=== PATIENT | female | born 1970 | race American Indian/Alaskan Native ===

== ENCOUNTER 2017-05-30 17:54 | Emergency (ER) | payer SELFPAY ==
[2017-05-30 18:29] LABS: Basophils % (Auto) 0.6 % (0.0-1.8); Eosinophils % (Auto) 2.4 % (0.0-4.3); Hematocrit 34.5 % (30.3-42.9); Hemoglobin 10.8 gm/dl (10.1-14.3); Mean Corpuscular HGB Conc 31 % (30-34); Mean Corpuscular Hemoglobin 23 pg (28-32); Mean Corpuscular Volume 75 fl (79-97); Platelet Count 339 K/mm3 (140-440); Red Blood Count 4.63 M/mm3 (3.65-5.03); Red Cell Distribution Width 16.5 % (13.2-15.2); White Blood Count 10.7 K/mm3 (4.5-11.0)
[2017-05-30 18:58] LABS: Anion Gap 17 mmol/L; BUN/Creatinine Ratio 15; Blood Urea Nitrogen 12 mg/dL (7-17); Calcium 9.5 mg/dL (8.4-10.2); Carbon Dioxide 26 mmol/L (22-30); Chloride 99.4 mmol/L (98-107); Glucose 86 mg/dL (65-100); Sodium 138 mmol/L (137-145)
--- NOTE | 2017-05-30 20:39 | XRay Report ---
FINAL REPORT PROCEDURE: XR CHEST ROUTINE 2V TECHNIQUE: Two views of the chest are obtained HISTORY: sob, cp. cough COMPARISON: No prior studies are available for comparison. FINDINGS: The heart is normal in size. There is no focal infiltrate, pneumothorax or pleural effusion. IMPRESSION: No abnormalities are seen.
[2017-05-30] MEDS ORDERED: TYLENOL PO ONE (21:27)
[2017-05-31] MEDS ORDERED: TORADOL IM ONE (02:30)
--- NOTE | 2017-05-31 02:32 | Emergency Department Report ---
ED Chest Pain HPI - General Chief Complaint: Chest Pain Stated Complaint: CHEST PAIN, BODY ACHES Time Seen by Provider: 05/31/17 02:22 Source: patient Mode of arrival: Ambulatory Limitations: No Limitations - History of Present Illness Initial Comments: 47 yo female with3 days of nasal congestion, post-nasal drip ,cough, and chest pain. she feels short of breath and nauseated at times, no vomiting has occurred. She is spitting up yellow sputum with specks of blood in it , c/o fever a few days ago but not now. MD Complaint: chest pain -: Gradual, days(s) (3) Onset: during rest Pain Location: substernal Pain Radiation: none Severity scale (0 -10): 6 Quality: tightness Consistency: intermittent Worsens With: other (coughing) Other Symptoms: cough, fever Aspirin use within the Past 7 Days: (0) No - Related Data On Oral Contraceptives: No Previous Rx's Medication Instructions Recorded Last Taken Type ALBUTEROL Inhaler [Proair] 2 puff IH QID PRN #1 inhalation 05/31/17 Unknown Rx Azithromycin [Zithromax Tri-Talib] 250 mg PO QDAY #6 tablet 05/31/17 Unknown Rx Fluconazole [Diflucan] 200 mg PO QDAY #2 tablet 05/31/17 Unknown Rx Fluticasone [Flonase] 1 spray NS QDAY #1 bottle 05/31/17 Unknown Rx Allergies Allergy/AdvReac Type Severity Reaction Status Date / Time codeine Allergy Vomiting Verified 05/30/17 18:08 Heart Score - HEART Score History: Slightly suspicious EKG: Non-specific Age: 45-65 Risk factors: 1-2 risk factors Troponin: < normal limit (x 3) HEART Score: 3 ED Review of Systems ROS: Stated complaint: CHEST PAIN, BODY ACHES Other details as noted in HPI Constitutional: denies: chills, fever Eyes: denies: eye pain, eye discharge, vision change ENT: congestion. denies: ear pain, throat pain Respiratory: cough. denies: shortness of breath, wheezing Cardiovascular: chest pain. denies: palpitations Endocrine: no symptoms reported Gastrointestinal: denies: abdominal pain, nausea, diarrhea Genitourinary: denies: urgency, dysuria, discharge Musculoskeletal: denies: back pain, joint swelling, arthralgia Skin: denies: rash, lesions Neurological: denies: headache, weakness, paresthesias Psychiatric: denies: anxiety, depression Hematological/Lymphatic: denies: easy bleeding, easy bruising ED Past Medical Hx - Past Medical History Previous Medical History?: Yes Hx Hypertension: Yes - Surgical History Past Surgical History?: No - Social History Smoking Status: Never Smoker Substance Use Type: Alcohol - Medications Home Medications: Home Medications Medication Instructions Recorded Confirmed Last Taken Type ALBUTEROL Inhaler [Proair] 2 puff IH QID PRN #1 inhalation 05/31/17 Unknown Rx Azithromycin [Zithromax Tri-Talib] 250 mg PO QDAY #6 tablet 05/31/17 Unknown Rx Fluconazole [Diflucan] 200 mg PO QDAY #2 tablet 05/31/17 Unknown Rx Fluticasone [Flonase] 1 spray NS QDAY #1 bottle 05/31/17 Unknown Rx ED Physical Exam - General Limitations: No Limitations General appearance: alert, in no apparent distress - Head Head exam: Present: atraumatic, normocephalic - Eye Eye exam: Present: normal appearance - ENT ENT exam: Present: mucous membranes moist - Neck Neck exam: Present: normal inspection - Respiratory Respiratory exam: Present: normal lung sounds bilaterally. Absent: respiratory distress - Cardiovascular Cardiovascular Exam: Present: regular rate, normal rhythm. Absent: systolic murmur, diastolic murmur, rubs, gallop - GI/Abdominal GI/Abdominal exam: Present: soft, normal bowel sounds - Extremities Exam Extremities exam: Present: normal inspection - Back Exam Back exam: Present: normal inspection - Neurological Exam Neurological exam: Present: alert, oriented X3 - Psychiatric Psychiatric exam: Present: normal affect, normal mood - Skin Skin exam: Present: warm, dry, intact, normal color. Absent: rash ED Course Vital Signs 05/30/17 05/30/17 05/30/17 18:08 21:28 21:30 Temperature 98.7 F 98.7 F Pulse Rate 99 H 92 H Respiratory 18 18 18 Rate Blood Pressure 157/94 160/90 Blood Pressure [Left] O2 Sat by Pulse 97 99 Oximetry 05/31/17 05/31/17 05/31/17 00:34 01:00 02:00 Temperature 98.4 F Pulse Rate 83 82 83 Respiratory 18 17 18 Rate Blood Pressure 134/87 132/85 Blood Pressure 145/95 [Left] O2 Sat by Pulse 100 99 98 Oximetry JOSH score - Josh Score Age > 65: (0) No Aspirin use within the Past 7 Days: (0) No 3 or more CAD Risk Factors: (0) No 2 or more Angina events in past 24 hrs: (0) No Known CAD with more than 50% Stenosis: (0) No Elevated Cardiac Markers: (0) No ST Deviation Greater than 0.5mm: (0) No JOSH Score: 0 ED Medical Decision Making - Lab Data Result diagrams: 05/30/17 18:23 05/30/17 18:23 Critical care attestation.: If time is entered above; I have spent that time in minutes in the direct care of this critically ill patient, excluding procedure time. ED Disposition Clinical Impression: Bronchitis Sinusitis, acute Qualifiers: Sinusitis location: pansinusitis Recurrence: non-recurrent Qualified Code(s): J01.40 - Acute pansinusitis, unspecified Disposition: DC- TO HOME OR SELFCARE Is pt being admited?: No Does the pt Need Aspirin: No Condition: Stable Instructions: Sinusitis (ED), Acute Bronchitis (ED) Prescriptions: ALBUTEROL Inhaler [Proair] 2 puff IH QID PRN #1 inhalation PRN Reason: Shortness Of Breath Azithromycin [Zithromax Tri-Talib] 250 mg PO QDAY #6 tablet Fluconazole [Diflucan] 200 mg PO QDAY #2 tablet Fluticasone [Flonase] 1 spray NS QDAY #1 bottle Referrals: PRIMARY CARE, [Primary Care Provider] - 3-[address] [facility] [Outside] - 3-5 Days Time of Disposition: 04:02
[2017-05-31 02:54] LABS: Urine Drugs of Abuse Note Disclamer
[2017-05-31 04:55] VITALS: BP 129/84
== END 2017-05-31 04:40 | disposition home or self-care (01) ==
LOC: ED 17:54
DX: J01.90 Acute sinusitis, unspecified (principal); J40 Bronchitis, not specified as acute or chronic; I10 Essential (primary) hypertension; Z88.6 Allergy status to analgesic agent
CPT/HCPCS: 36415; 71020; 80048; 80307; 81025; 84484; 85025; 85379; 93005; 93010; 96372; 99284; J1885